=== PATIENT | female | born 1945 | race Caucasian/White ===

== ENCOUNTER 2018-02-07 11:46 | Inpatient (IN) | payer MEDICARE ==
[2018-02-07 15:14] LABS: ADD MAN DIFF? NO
[2018-02-07] MEDS ORDERED: ACETAMINOPHEN 325 MG TABLET. PO (15:15)
[2018-02-07] MEDS ORDERED: ONDANSETRON PF 4 MG/2 ML VIAL. IV (15:15)
[2018-02-07] MEDS ORDERED: MORPHINE SULFATE 2 MG/ML DISP.SYRIN. IV (15:15)
[2018-02-07 15:17] LABS: BASO # 0.1 x10^3/uL (0.0-0.2); BASO % 1 % (0-3); EOS # 0.1 x10^3/uL (0.0-0.7); EOS % 1 % (0-3); HEMOGLOBIN 12.9 g/dL (12.0-15.5); LYMPH # 1.9 x10^3/uL (1.0-4.8); LYMPH % 19 % (24-48); MEAN CORPUSCULAR HEMOGLOBIN 32 pg (25-35); MEAN CORPUSCULAR HGB CONC 34 g/dL (31-37); MEAN CORPUSCULAR VOLUME 94 fL (79-100); MONO # 0.6 x10^3/uL (0.0-1.1); MONO % 7 % (0-9); NEUT # 7.1 x10^3uL (1.8-7.7); NEUT % 73 % (31-73); PLATELET COUNT 245 x10^3/uL (140-400); RED BLOOD COUNT 4.06 x10^6/uL (3.50-5.40); RED CELL DISTRIBUTION WIDTH 14.6 % (11.5-14.5); WHITE BLOOD COUNT 9.7 x10^3/uL (4.0-11.0)
[2018-02-07] MEDS: fentaNYL PF VIAL 100 MCG/2 ML VIAL IV ×3 (15:17→22:36)
[2018-02-07 15:27] LABS: INR 3.1 (0.8-1.1); PARTIAL THROMBOPLASTIN TIME 41 SEC (24-38); PROTHROMBIN TIME PATIENT 31.2 SEC (11.7-14.0)
[2018-02-07 15:29] LABS: ANION GAP 9 (6-14); BLOOD UREA NITROGEN 24 mg/dL (7-20); BUN/CREATININE RATIO 24 (6-20); CALCIUM 10.2 mg/dL (8.5-10.1); CARBON DIOXIDE 27 mmol/L (21-32); CHLORIDE 104 mmol/L (98-107); GFR 54.5; GLUCOSE 215 mg/dL (70-99); POTASSIUM 5.2 mmol/L (3.5-5.1); SODIUM 140 mmol/L (136-145)
[2018-02-07] MEDS ORDERED: CONTRAST GIVEN MC (15:30)
[2018-02-07 15:34] LABS: ALBUMIN 3.4 g/dL (3.4-5.0); ALBUMIN/GLOBULIN RATIO 1.6 (1.0-1.7); ALK PHOS 116 U/L (46-116); ALT (SGPT) 40 U/L (14-59); AST (SGOT) 30 U/L (15-37); TOTAL BILIRUBIN 0.4 mg/dL (0.2-1.0); TOTAL PROTEIN 5.5 g/dL (6.4-8.2)
[2018-02-07 15:36] LABS: TROPONINI < 0.017 ng/mL (0.000-0.055)
[2018-02-07] MEDS: IOHEXOL 300 MG/ML 100ML VIAL. IV (15:53)
[2018-02-07 17:12] LABS: POC GLUCOSE 168 mg/dL (70-99)
[2018-02-07] MEDS: ALPRAZolam 0.25 MG TABLET PO (21:38)
[2018-02-07] MEDS: METOPROLOL TART IMMED RELEASE 25 MG TABLET. PO (21:38)
[2018-02-07] MEDS: diphenhydrAMINE HCL 25 MG CAPSULE PO (21:39)
[2018-02-07 21:56] LABS: POC GLUCOSE 152 mg/dL (70-99)
[2018-02-07 22:05] LABS: IMMEDIATE SPIN CROSSMATCH 1 3
[2018-02-08] MEDS: fentaNYL PF VIAL 100 MCG/2 ML VIAL IV ×4 (01:09→21:27)
[2018-02-08] MEDS ORDERED: LIDOCAINE 1% PF 2 ML VIAL. ID (08:15)
[2018-02-08] MEDS ORDERED: HYDROmorphone 2 MG/ML VIAL IV (08:15)
[2018-02-08] MEDS ORDERED: PROCHLORPERAZINE 10 MG/2 ML VIAL. IV (08:15)
[2018-02-08] MEDS ORDERED: fentaNYL PF VIAL 100 MCG/2 ML VIAL IV ×3 (08:15→14:45)
[2018-02-08] MEDS ORDERED: ONDANSETRON PF 4 MG/2 ML VIAL. IV ×2 (08:15→14:45)
[2018-02-08 09:07] LABS: ADD MAN DIFF? NO
[2018-02-08 09:21] LABS: BASO % 0 % (0-3); EOS # 0.2 x10^3/uL (0.0-0.7); EOS % 2 % (0-3); HEMATOCRIT 31.6 % (36.0-47.0); HEMOGLOBIN 10.5 g/dL (12.0-15.5); LYMPH # 2.1 x10^3/uL (1.0-4.8); LYMPH % 30 % (24-48); MEAN CORPUSCULAR HEMOGLOBIN 32 pg (25-35); MEAN CORPUSCULAR HGB CONC 33 g/dL (31-37); MEAN CORPUSCULAR VOLUME 94 fL (79-100); MONO # 0.6 x10^3/uL (0.0-1.1); MONO % 8 % (0-9); NEUT # 4.1 x10^3uL (1.8-7.7); NEUT % 59 % (31-73); PLATELET COUNT 181 x10^3/uL (140-400); RED BLOOD COUNT 3.34 x10^6/uL (3.50-5.40); RED CELL DISTRIBUTION WIDTH 14.9 % (11.5-14.5); WHITE BLOOD COUNT 6.9 x10^3/uL (4.0-11.0)
[2018-02-08 09:30] LABS: INR 1.5 (0.8-1.1); PROTHROMBIN TIME PATIENT 17.3 SEC (11.7-14.0)
[2018-02-08 09:35] LABS: ANION GAP 8 (6-14); BLOOD UREA NITROGEN 21 mg/dL (7-20); CALCIUM 10.3 mg/dL (8.5-10.1); CARBON DIOXIDE 30 mmol/L (21-32); CHLORIDE 103 mmol/L (98-107); GFR 54.5; GLUCOSE 145 mg/dL (70-99); SODIUM 141 mmol/L (136-145)
[2018-02-08 09:43] LABS: POTASSIUM 4.1 mmol/L (3.5-5.1)
[2018-02-08] MEDS: IV RINGERS,LACTATED 1000ML 1,000 ML IV (12:24)
[2018-02-08] MEDS ORDERED: PROPOFOL 20 ML IV (12:28)
[2018-02-08] MEDS ORDERED: fentaNYL PF VIAL 100 MCG/2 ML VIAL (12:28)
[2018-02-08 12:34] LABS: POC GLUCOSE 144 mg/dL (70-99)
[2018-02-08 12:34] LABS: POC GLUCOSE 133 mg/dL (70-99)
[2018-02-08] MEDS ORDERED: CLINDAMYCIN 600MG PREMIX 50 ML IV (13:15)
[2018-02-08] MEDS ORDERED: DEXAMETHASONE SOD PHOS 20 MG/5 ML VIAL. (13:59)
[2018-02-08] MEDS: CLINDAMYCIN 900MG PREMIX 50 ML IV ×2 (13:59→21:30)
[2018-02-08] MEDS ORDERED: SEVOFLURANE 31 TO 60 MINUTES. IH (13:59)
[2018-02-08] MEDS: BUPIVACAINE-EPI 0.25%-1:200000 50 ML VIAL. (14:04)
[2018-02-08] MEDS ORDERED: ONDANSETRON PF 4 MG/2 ML VIAL. (14:20)
[2018-02-08] MEDS ORDERED: HYDROcodone/APAP 7.5/325MG 1 TAB TABLET PO ×2 (14:45)
[2018-02-08] MEDS ORDERED: DEXTROSE 50% 25 GM / 50ML DISP.SYRIN. IV ×2 (14:45→18:30)
[2018-02-08] MEDS ORDERED: oxyCODONE IR 5 MG TABLET PO (14:45)
[2018-02-08] MEDS ORDERED: MORPHINE SULFATE 4 MG/ML DISP.SYRIN. IV (14:45)
[2018-02-08] MEDS ORDERED: MORPHINE SULFATE 2 MG/ML DISP.SYRIN. IV (14:45)
[2018-02-08] MEDS ORDERED: POLYETHYLENE GLYCOL 3350 17 GM PACKET. PO (14:45)
[2018-02-08 17:36] LABS: POC GLUCOSE 280 mg/dL (70-99)
[2018-02-08] MEDS: FUROSEMIDE 40 MG TABLET. PO (17:39)
[2018-02-08] MEDS: POTASSIUM CHLORIDE 20 MEQ TABLET.ER. PO (17:39)
[2018-02-08] MEDS: LEVOTHYROXINE 125 MCG TABLET PO (17:39)
[2018-02-08] MEDS: LISINOPRIL 20 MG TABLET PO (17:40)
[2018-02-08] MEDS: amLODIPine BESYLATE 5 MG TABLET PO (17:40)
[2018-02-08] MEDS: ESTRADIOL 1 MG TABLET. PO (17:41)
[2018-02-08] MEDS: METOPROLOL TART IMMED RELEASE 25 MG TABLET. PO ×2 (17:41→21:24)
[2018-02-08] MEDS: ALPRAZolam 0.25 MG TABLET PO (21:24)
[2018-02-08] MEDS: diphenhydrAMINE HCL 25 MG CAPSULE PO (21:25)
[2018-02-08 21:48] LABS: POC GLUCOSE 392 mg/dL (70-99)
[2018-02-08] MEDS: HEPARIN for IV BOLUS 10,000 UNIT/10 ML VIAL. IV (22:01)
[2018-02-08] MEDS: HEPARIN 25,000UTS/500ML PREMIX 500 ML IV (22:03)
[2018-02-08] MEDS: INSULIN ASPART 300 UNITS/3 ML INSULN.PEN SQ (22:50)
[2018-02-09] MEDS: fentaNYL PF VIAL 100 MCG/2 ML VIAL IV ×4 (00:43→21:33)
[2018-02-09] MEDS: CLINDAMYCIN 900MG PREMIX 50 ML IV ×2 (02:00→08:48)
[2018-02-09] MEDS ORDERED: MAGNESIUM HYDROXIDE 2,400 MG/30 ML ORAL.SUSP. PO (06:00)
[2018-02-09] MEDS: LEVOTHYROXINE 125 MCG TABLET PO (06:29)
[2018-02-09 08:22] LABS: POC GLUCOSE 222 mg/dL (70-99)
[2018-02-09] MEDS: ANTI-COAG MONITOR BY PHARMACY. MC (08:44)
[2018-02-09 08:45] LABS: ADD MAN DIFF? NO
[2018-02-09] MEDS: POTASSIUM CHLORIDE 20 MEQ TABLET.ER. PO (08:48)
[2018-02-09] MEDS: FUROSEMIDE 40 MG TABLET. PO (08:48)
[2018-02-09] MEDS: METOPROLOL TART IMMED RELEASE 25 MG TABLET. PO ×2 (08:49→20:48)
[2018-02-09] MEDS: amLODIPine BESYLATE 5 MG TABLET PO (08:49)
[2018-02-09] MEDS: SENNOSIDES/DOCUSATE 8.6/50MG TABLET. PO (08:49)
[2018-02-09] MEDS: ESTRADIOL 1 MG TABLET. PO (08:50)
[2018-02-09] MEDS: GLIMEPIRIDE 2 MG TABLET. PO (08:50)
[2018-02-09] MEDS: LISINOPRIL 20 MG TABLET PO (08:51)
[2018-02-09 08:53] LABS: BASO % 0 % (0-3); EOS % 0 % (0-3); HEMATOCRIT 28.1 % (36.0-47.0); HEMOGLOBIN 9.3 g/dL (12.0-15.5); LYMPH # 1.1 x10^3/uL (1.0-4.8); LYMPH % 13 % (24-48); MEAN CORPUSCULAR HEMOGLOBIN 32 pg (25-35); MEAN CORPUSCULAR HGB CONC 33 g/dL (31-37); MEAN CORPUSCULAR VOLUME 95 fL (79-100); MONO # 0.7 x10^3/uL (0.0-1.1); MONO % 8 % (0-9); NEUT # 6.7 x10^3uL (1.8-7.7); NEUT % 79 % (31-73); PLATELET COUNT 181 x10^3/uL (140-400); RED BLOOD COUNT 2.96 x10^6/uL (3.50-5.40); RED CELL DISTRIBUTION WIDTH 14.5 % (11.5-14.5); WHITE BLOOD COUNT 8.5 x10^3/uL (4.0-11.0)
[2018-02-09] MEDS: HYDROcodone/APAP 5/325MG 1 TAB TABLET PO ×4 (08:53→20:46)
[2018-02-09 09:03] LABS: INR 1.4 (0.8-1.1); PROTHROMBIN TIME PATIENT 16.2 SEC (11.7-14.0)
[2018-02-09 09:04] LABS: UNFRACTIONATED HEPARIN TESTING 0.66 IU/mL (0.30-0.70)
[2018-02-09] MEDS: INSULIN ASPART 300 UNITS/3 ML INSULN.PEN SQ ×3 (09:04→18:20)
[2018-02-09 11:56] LABS: POC GLUCOSE 215 mg/dL (70-99)
[2018-02-09] MEDS ORDERED: BISACODYL 10 MG SUPP.RECT. PR (16:00)
[2018-02-09 17:03] LABS: POC GLUCOSE 212 mg/dL (70-99)
[2018-02-09] MEDS: WARFARIN 7.5 MG TABLET. PO (17:07)
[2018-02-09] MEDS: ALPRAZolam 0.25 MG TABLET PO (20:46)
[2018-02-09] MEDS: HEPARIN 25,000UTS/500ML PREMIX 500 ML IV (20:46)
[2018-02-09] MEDS: diphenhydrAMINE HCL 25 MG CAPSULE PO (22:48)
[2018-02-10 05:08] LABS: ADD MAN DIFF? NO
[2018-02-10 05:28] LABS: BASO % 1 % (0-3); EOS # 0.2 x10^3/uL (0.0-0.7); EOS % 2 % (0-3); HEMATOCRIT 27.6 % (36.0-47.0); HEMOGLOBIN 9.2 g/dL (12.0-15.5); LYMPH # 3.5 x10^3/uL (1.0-4.8); LYMPH % 36 % (24-48); MEAN CORPUSCULAR HEMOGLOBIN 32 pg (25-35); MEAN CORPUSCULAR HGB CONC 33 g/dL (31-37); MEAN CORPUSCULAR VOLUME 96 fL (79-100); MONO # 0.7 x10^3/uL (0.0-1.1); MONO % 7 % (0-9); NEUT # 5.3 x10^3uL (1.8-7.7); NEUT % 54 % (31-73); PLATELET COUNT 211 x10^3/uL (140-400); RED BLOOD COUNT 2.88 x10^6/uL (3.50-5.40); RED CELL DISTRIBUTION WIDTH 15.2 % (11.5-14.5); WHITE BLOOD COUNT 9.7 x10^3/uL (4.0-11.0)
[2018-02-10 06:11] LABS: INR 1.4 (0.8-1.1); PROTHROMBIN TIME PATIENT 16.7 SEC (11.7-14.0)
[2018-02-10 06:12] LABS: UNFRACTIONATED HEPARIN TESTING 0.49 IU/mL (0.30-0.70)
[2018-02-10] MEDS: LEVOTHYROXINE 125 MCG TABLET PO ×2 (06:26→08:55)
[2018-02-10] MEDS: INSULIN ASPART 300 UNITS/3 ML INSULN.PEN SQ ×3 (08:00→17:40)
[2018-02-10 08:38] LABS: POC GLUCOSE 110 mg/dL (70-99)
[2018-02-10] MEDS: ESTRADIOL 1 MG TABLET. PO (08:51)
[2018-02-10] MEDS: SENNOSIDES/DOCUSATE 8.6/50MG TABLET. PO (08:53)
[2018-02-10] MEDS: LISINOPRIL 20 MG TABLET PO (08:53)
[2018-02-10] MEDS: POTASSIUM CHLORIDE 20 MEQ TABLET.ER. PO (08:53)
[2018-02-10] MEDS: ALPRAZolam 0.25 MG TABLET PO ×2 (08:54→20:15)
[2018-02-10] MEDS: amLODIPine BESYLATE 5 MG TABLET PO (08:54)
[2018-02-10] MEDS: GLIMEPIRIDE 2 MG TABLET. PO (08:54)
[2018-02-10] MEDS: FUROSEMIDE 40 MG TABLET. PO (08:54)
[2018-02-10] MEDS: METOPROLOL TART IMMED RELEASE 25 MG TABLET. PO ×2 (08:55→20:15)
[2018-02-10] MEDS: HYDROcodone/APAP 5/325MG 1 TAB TABLET PO ×4 (09:53→23:03)
[2018-02-10 11:11] LABS: POC GLUCOSE 225 mg/dL (70-99)
[2018-02-10] MEDS: ANTI-COAG MONITOR BY PHARMACY. MC (12:40)
[2018-02-10 17:00] LABS: POC GLUCOSE 207 mg/dL (70-99)
[2018-02-10] MEDS: WARFARIN 7.5 MG TABLET. PO (17:42)
[2018-02-10] MEDS: diphenhydrAMINE HCL 25 MG CAPSULE PO (20:15)
[2018-02-10] MEDS: HEPARIN 25,000UTS/500ML PREMIX 500 ML IV (23:03)
[2018-02-11 04:34] LABS: POC GLUCOSE 180 mg/dL (70-99)
[2018-02-11 05:25] LABS: UNFRACTIONATED HEPARIN TESTING 0.44 IU/mL (0.30-0.70)
[2018-02-11] MEDS: INSULIN ASPART 300 UNITS/3 ML INSULN.PEN SQ ×3 (08:00→17:00)
[2018-02-11] MEDS: POTASSIUM CHLORIDE 20 MEQ TABLET.ER. PO (08:07)
[2018-02-11] MEDS: FUROSEMIDE 40 MG TABLET. PO (08:07)
[2018-02-11] MEDS: LISINOPRIL 20 MG TABLET PO (08:15)
[2018-02-11] MEDS: METOPROLOL TART IMMED RELEASE 25 MG TABLET. PO ×2 (08:17→20:39)
[2018-02-11] MEDS: HYDROcodone/APAP 5/325MG 1 TAB TABLET PO ×3 (08:21→20:39)
[2018-02-11] MEDS: GLIMEPIRIDE 2 MG TABLET. PO (08:22)
[2018-02-11] MEDS: ESTRADIOL 1 MG TABLET. PO (08:22)
[2018-02-11] MEDS: SENNOSIDES/DOCUSATE 8.6/50MG TABLET. PO (08:23)
[2018-02-11] MEDS: ALPRAZolam 0.25 MG TABLET PO ×4 (08:23→20:39)
[2018-02-11] MEDS: amLODIPine BESYLATE 5 MG TABLET PO (08:33)
[2018-02-11] MEDS: ACETAMINOPHEN 325 MG TABLET. PO (11:41)
[2018-02-11 12:34] LABS: POC GLUCOSE 209 mg/dL (70-99)
[2018-02-11 12:34] LABS: POC GLUCOSE 111 mg/dL (70-99)
[2018-02-11 14:12] LABS: INR 2.4 (0.8-1.1); PROTHROMBIN TIME PATIENT 25.7 SEC (11.7-14.0)
[2018-02-11 17:31] LABS: POC GLUCOSE 120 mg/dL (70-99)
[2018-02-11] MEDS: diphenhydrAMINE HCL 25 MG CAPSULE PO (20:39)
[2018-02-12 05:30] LABS: INR 2.6 (0.8-1.1); PROTHROMBIN TIME PATIENT 27.1 SEC (11.7-14.0)
[2018-02-12] MEDS: LEVOTHYROXINE 125 MCG TABLET PO (05:31)
[2018-02-12 05:33] LABS: UNFRACTIONATED HEPARIN TESTING < 0.10 IU/mL (0.30-0.70)
[2018-02-12] MEDS: HYDROcodone/APAP 5/325MG 1 TAB TABLET PO ×4 (05:34→21:30)
[2018-02-12] MEDS: INSULIN ASPART 300 UNITS/3 ML INSULN.PEN SQ ×3 (08:00→17:00)
[2018-02-12 10:04] LABS: POC GLUCOSE 149 mg/dL (70-99)
[2018-02-12] MEDS: POTASSIUM CHLORIDE 20 MEQ TABLET.ER. PO (10:08)
[2018-02-12] MEDS: ESTRADIOL 1 MG TABLET. PO (10:08)
[2018-02-12] MEDS: SENNOSIDES/DOCUSATE 8.6/50MG TABLET. PO (10:08)
[2018-02-12] MEDS: FUROSEMIDE 40 MG TABLET. PO (10:09)
[2018-02-12] MEDS: GLIMEPIRIDE 2 MG TABLET. PO (10:09)
[2018-02-12] MEDS: LISINOPRIL 20 MG TABLET PO (10:09)
[2018-02-12] MEDS: amLODIPine BESYLATE 5 MG TABLET PO (10:10)
[2018-02-12] MEDS: METOPROLOL TART IMMED RELEASE 25 MG TABLET. PO ×2 (10:12→21:30)
[2018-02-12 12:28] LABS: POC GLUCOSE 207 mg/dL (70-99)
[2018-02-12 17:34] LABS: POC GLUCOSE 134 mg/dL (70-99)
[2018-02-12] MEDS: WARFARIN 3 MG TABLET. PO (17:53)
[2018-02-12 20:36] LABS: POC GLUCOSE 267 mg/dL (70-99)
[2018-02-12] MEDS: diphenhydrAMINE HCL 25 MG CAPSULE PO (21:29)
[2018-02-13] MEDS: LEVOTHYROXINE 125 MCG TABLET PO (05:56)
[2018-02-13] MEDS: HYDROcodone/APAP 5/325MG 1 TAB TABLET PO ×3 (05:57→16:55)
[2018-02-13 07:46] LABS: POC GLUCOSE 157 mg/dL (70-99)
[2018-02-13] MEDS: INSULIN ASPART 300 UNITS/3 ML INSULN.PEN SQ ×3 (08:00→17:00)
[2018-02-13] MEDS: SENNOSIDES/DOCUSATE 8.6/50MG TABLET. PO (09:18)
[2018-02-13] MEDS: ESTRADIOL 1 MG TABLET. PO (09:18)
[2018-02-13] MEDS: LISINOPRIL 20 MG TABLET PO (09:19)
[2018-02-13] MEDS: amLODIPine BESYLATE 5 MG TABLET PO (09:20)
[2018-02-13] MEDS: POTASSIUM CHLORIDE 20 MEQ TABLET.ER. PO (09:20)
[2018-02-13] MEDS: GLIMEPIRIDE 2 MG TABLET. PO (09:20)
[2018-02-13] MEDS: FUROSEMIDE 40 MG TABLET. PO (09:21)
[2018-02-13] MEDS: METOPROLOL TART IMMED RELEASE 25 MG TABLET. PO (09:25)
[2018-02-13 13:04] LABS: POC GLUCOSE 288 mg/dL (70-99)
[2018-02-13] MEDS: WARFARIN 3 MG TABLET. PO (16:00)
== END 2018-02-13 18:40 | disposition home or self-care (01) | DRG 605 ==
LOC: ER 11:46 → 2 NORTH 15:08
PROC: 0JCL0ZZ Extirpation of Matter from Right Upper Leg Subcutaneous Tissue and Fascia, Open Approach (ICD-10-PCS; principal; 2018-02-08 13:00)
PROC: 30233L1 Transfusion of Nonautologous Fresh Plasma into Peripheral Vein, Percutaneous Approach (ICD-10-PCS; 2018-02-08 13:45)
PROC: 30233K1 Transfusion of Nonautologous Frozen Plasma into Peripheral Vein, Percutaneous Approach (ICD-10-PCS; 2018-02-08 13:45)
DX: S70.11XA Contusion of right thigh, initial encounter (principal); L02.415 Cutaneous abscess of right lower limb; E11.9 Type 2 diabetes mellitus without complications; I35.0 Nonrheumatic aortic (valve) stenosis; E03.9 Hypothyroidism, unspecified; R79.1 Abnormal coagulation profile; I25.10 Atherosclerotic heart disease of native coronary artery without angina pectoris; T45.515A Adverse effect of anticoagulants, initial encounter; I10 Essential (primary) hypertension; V89.2XXA Person injured in unspecified motor-vehicle accident, traffic, initial encounter; Y93.89 Activity, other specified; Y92.488 Other paved roadways as the place of occurrence of the external cause; Y99.8 Other external cause status; W22.10XA Striking against or struck by unspecified automobile airbag, initial encounter; Z95.2 Presence of prosthetic heart valve; Z79.01 Long term (current) use of anticoagulants
CPT/HCPCS: 36415; 71260; 73564; 73701; 74177; 76881; 80048; 80053; 82962; 84484; 85025; 85520; 85610; 85730; 86850; 86900; 86901; 86920; 86927; 87071; 87075; 87205; 93005; 97162-GP; 97165-GO; 97530-GO; 97530-GP; 97535-GO; 99291; 99291-25; J1100; J1644; J1815; J2405; J2704; J3010; J3490; J7120; P9017; Q0163; Q9967

== ENCOUNTER 2018-07-21 22:38 | Emergency (ER) | payer MEDICARE, OTHER ==
[~2018-07-21] VITALS: Ht 149.9 cm; Wt 81.2 kg
[~2018-07-21 22:38] MED LIST: ALPR0.254 PO; AMLO5TAB7 PO; ESTR1TAB15 PO; FURO40TA4 PO; HYDR-971 PO; LEVO125T5 PO; LISI-334 PO; METF500T16 PO; METO25TA4 PO; POTA20TA82 PO; PRAV40TA2 PO; WARF3TAB50 PO
--- NOTE | 2018-07-21 23:59 | PHYS DOC ---
Past Medical History Past Medical History: Anxiety, Diabetes-Type II, High Cholesterol, Hypertension , Hypothyroid Past Surgical History: Appendectomy, Hysterectomy Additional Past Surgical Histo: AORTIC VALVE REPLACEMENT Alcohol Use: None Drug Use: None Adult General Chief Complaint Chief Complaint: HYPERTENSION HPI HPI 72-year-old female presents to ER for complaints of concerns of elevated blood pressure. Patient reports over the past 7 months she has had increased stress and anxiety due to her uncle dying and her helping her aunt as she is having daily chemo txs. Pt also reports recently her husb. had some health issues to. She reports she took her Rx'd Xanax 0.25mg tonight [employer] which has helped her anxiety. She denies SI. Review of Systems Review of Systems Constitutional: Denies fever or chills [] Eyes: Denies change in visual acuity, redness, or eye pain [] HENT: Denies nasal congestion or sore throat [] Respiratory: Denies cough or shortness of breath [] Cardiovascular: No additional information not addressed in HPI [] GI: Denies abdominal pain, nausea, vomiting, bloody stools or diarrhea [] : Denies dysuria or hematuria [] Musculoskeletal: Denies back pain or joint pain [] Integument: Denies rash or skin lesions [] Neurologic: Denies headache, focal weakness or sensory changes [] Endocrine: Denies polyuria or polydipsia [] All other systems were reviewed and found to be within normal limits, except as documented in this note. Current Medications Current Medications Current Medications Medications (Trade) Dose Ordered Sig/Jo Start Time Stop Time Status Last Admin Dose Admin Amlodipine Besylate (Norvasc) 2.5 mg 1X ONCE 07/22/18 01:15 07/22/18 01:16 DC Allergies Allergies Allergies Coded Allergies Type Severity Reaction Last Updated Verified Penicillins Allergy Intermediate 02/07/18 Yes codeine Allergy Intermediate RESPIRATORY ISSUES. TOLERATES HYDROCODONE Yes Physical Exam Physical Exam Constitutional: Well developed, well nourished, no acute distress, non-toxic appearance. [] HENT: Normocephalic, atraumatic, bilateral external ears normal, oropharynx moist, no oral exudates, nose normal. [] Eyes: PERRLA, EOMI, conjunctiva normal, no discharge. [] Neck: Normal range of motion, no tenderness, supple, no stridor. [] Cardiovascular:Heart rate regular rhythm, no murmur [] Lungs & Thorax: Bilateral breath sounds clear to auscultation [] Abdomen: Bowel sounds normal, soft, no tenderness, no masses, no pulsatile masses. [] Skin: Warm, dry, no erythema, no rash. [] Back: No tenderness, no CVA tenderness. [] Extremities: No tenderness, no cyanosis, no clubbing, ROM intact, no edema. [] Neurologic: Alert and oriented X 3, normal motor function, normal sensory function, no focal deficits noted. [] Psychologic: Affect normal, judgement normal, mood normal. [] Current Patient Data Vital Signs Vital Signs Date Time Temp Pulse Resp B/P (MAP) Pulse Ox O2 Delivery O2 Flow Rate FiO2 07/21/18 22:45 97.7 85 16 189/69 (109) 94 Room Air 97.7 Lab Values Laboratory Tests Test 07/21/18 23:55 07/22/18 00:10 Urine Collection Type Unknown Urine Color Yellow Urine Clarity Clear Urine pH 6.5 Urine Specific [place] <=1.005 Urine Protein Negative mg/dL (NEG-TRACE) Urine Glucose (UA) Negative mg/dL (NEG) Urine Ketones (Stick) Negative mg/dL (NEG) Urine Blood Negative (NEG) Urine Nitrite Negative (NEG) Urine Bilirubin Negative (NEG) Urine Urobilinogen Dipstick 0.2 mg/dL (0.2 mg/dL) Urine Leukocyte Esterase Negative (NEG) Urine RBC 0 /HPF (0-2) Urine WBC 0 /HPF (0-4) Urine Squamous Epithelial Cells Few /LPF Urine Bacteria 0 /HPF (0-FEW) White Blood Count 5.0 x10^3/uL (4.0-11.0) Red Blood Count 4.41 x10^6/uL (3.50-5.40) Hemoglobin 13.6 g/dL (12.0-15.5) Hematocrit 39.6 % (36.0-47.0) Mean Corpuscular Volume 90 fL (79-100) Mean Corpuscular Hemoglobin 31 pg (25-35) Mean Corpuscular Hemoglobin Concent 34 g/dL (31-37) Red Cell Distribution Width 17.8 % (11.5-14.5) H Platelet Count 264 x10^3/uL (140-400) Neutrophils (%) (Auto) 51 % (31-73) Lymphocytes (%) (Auto) 33 % (24-48) Monocytes (%) (Auto) 11 % (0-9) H Eosinophils (%) (Auto) 4 % (0-3) H Basophils (%) (Auto) 1 % (0-3) Neutrophils # (Auto) 2.6 x10^3uL (1.8-7.7) Lymphocytes # (Auto) 1.7 x10^3/uL (1.0-4.8) Monocytes # (Auto) 0.5 x10^3/uL (0.0-1.1) Eosinophils # (Auto) 0.2 x10^3/uL (0.0-0.7) Basophils # (Auto) 0.1 x10^3/uL (0.0-0.2) Prothrombin Time 27.1 SEC (11.7-14.0) H Prothrombin Time INR 2.6 (0.8-1.1) H PTT 40 SEC (24-38) H Sodium Level 140 mmol/L (136-145) Potassium Level 3.5 mmol/L (3.5-5.1) Chloride Level 103 mmol/L (98-107) Carbon Dioxide Level 28 mmol/L (21-32) Anion Gap 9 (6-14) Blood Urea Nitrogen 16 mg/dL (7-20) Creatinine 0.9 mg/dL (0.6-1.0) Estimated GFR (Cockcroft-Gault) 61.5 BUN/Creatinine Ratio 18 (6-20) Glucose Level 176 mg/dL (70-99) H Calcium Level 11.1 mg/dL (8.5-10.1) H Magnesium Level 2.0 mg/dL (1.8-2.4) Total Bilirubin 0.3 mg/dL (0.2-1.0) Aspartate Amino Transferase (AST) 25 U/L (15-37) Alanine Aminotransferase (ALT) 24 U/L (14-59) Alkaline Phosphatase 146 U/L (46-116) H Troponin I Quantitative < 0.017 ng/mL (0.000-0.055) Total Protein 7.0 g/dL (6.4-8.2) Albumin 3.4 g/dL (3.4-5.0) Albumin/Globulin Ratio 0.9 (1.0-1.7) L Laboratory Tests 07/22/18 00:10 Laboratory Tests 07/22/18 00:10 EKG EKG EKG obtained was compared with one in pt's records from 02/07/18 similar- more freq. PVCs on today's EKG Radiology/Procedures Radiology/Procedures [] Course & Med Decision Making Course & Med Decision Making Pertinent Labs and Imaging studies reviewed. (See chart for details) 0128: Pt during initial exam had BP of 188/78 however during ER stay BP was 207/ 77 at last check when discussing test results with pt and her husb. This was discussed with Dr. Sauceda and initially plan was to admin. 2.5 mg amlodipine however pt on recheck pt is taking max dose of 10mg/day. So order changed to Clonidine 0.1mg and this was discussed with pt. Pt is calling PCP Dr. Gore in morning to discuss ER visit and will f/u with him tomorrow for recheck and further care/monitoring of BP. Discussed Calcium at 11.1 and pt will also discuss this with PCP. Pt during this discussion has no complaints. Dragon Disclaimer Dragon Disclaimer This electronic medical record was generated, in whole or in part, using a voice recognition dictation system. Departure Departure Impression: Primary Impression: Elevated blood pressure reading with diagnosis of hypertension Disposition: 01 HOME, SELF-CARE Condition: STABLE Referrals: SHANDA GORE MD (PCP) Patient Instructions: Hypertension, Managing Your High Blood Pressure Additional Instructions: As discussed call Dr. Gore's office tomorrow and discuss your ER visit and need for follow-up for recheck of blood pressure. Your INR was 2.6 Calcium was 11.2- you should discuss this and have level rechecked. FAUSTO ZARATE APRN Jul 21, 2018 23:59
[2018-07-22 00:26] LABS: BASO # 0.1 x10^3/uL (0.0-0.2); BASO % 1 % (0-3); EOS # 0.2 x10^3/uL (0.0-0.7); EOS % 4 % (0-3); HEMATOCRIT 39.6 % (36.0-47.0); HEMOGLOBIN 13.6 g/dL (12.0-15.5); LYMPH # 1.7 x10^3/uL (1.0-4.8); LYMPH % 33 % (24-48); MEAN CORPUSCULAR HEMOGLOBIN 31 pg (25-35); MEAN CORPUSCULAR HGB CONC 34 g/dL (31-37); MEAN CORPUSCULAR VOLUME 90 fL (79-100); MONO # 0.5 x10^3/uL (0.0-1.1); MONO % 11 % (0-9); NEUT # 2.6 x10^3uL (1.8-7.7); NEUT % 51 % (31-73); PLATELET COUNT 264 x10^3/uL (140-400); RED BLOOD COUNT 4.41 x10^6/uL (3.50-5.40); RED CELL DISTRIBUTION WIDTH 17.8 % (11.5-14.5)
[2018-07-22 00:27] LABS: BILIRUBIN,URINE NEGATIVE (NEG); CLARITY,URINE CLEAR; COLOR,URINE YELLOW; NITRITE,URINE NEGATIVE (NEG); PH,URINE 6.5; PROTEIN,URINE NEGATIVE (NEG-TRACE); UROBILINOGEN,URINE 0.2 mg/dL (0.2 mg/dL)
[2018-07-22 00:42] LABS: PROTHROMBIN TIME PATIENT 27.1 SEC (11.7-14.0)
[2018-07-22 00:43] LABS: CALCIUM 11.1 mg/dL (8.5-10.1); CREATININE 0.9 mg/dL (0.6-1.0); GFR 61.5; POTASSIUM 3.5 mmol/L (3.5-5.1)
[2018-07-22 00:47] LABS: ALBUMIN 3.4 g/dL (3.4-5.0); ALBUMIN/GLOBULIN RATIO 0.9 (1.0-1.7); TOTAL BILIRUBIN 0.3 mg/dL (0.2-1.0)
[2018-07-22 00:50] LABS: BACTERIA,URINE 0 /HPF (0-FEW); RBC,URINE 0 /HPF (0-2); SQUAMOUS EPITHELIAL CELL,UR FEW /LPF; WBC,URINE 0 /HPF (0-4)
[2018-07-22] MEDS ORDERED: amLODIPine BESYLATE 5 MG TABLET PO ONE (01:15)
[2018-07-22] MEDS ORDERED: cloNIDine HCL 0.1 MG TABLET PO ONE (01:45)
[2018-07-22 02:00] VITALS: BP 162/72
--- NOTE | 2018-07-22 06:16 | EKG ---
[facility] [address] [place] [address] Test Date: 2018-07-21 Test Time: 23:31:04 Pat Name: MADONNA HANNA Department: Room: Gender: F [employer]: : 1945 Requested By: FAUSTO ZARATE Order Number: [id number] Reading MD: Edison Morse Measurements Intervals [place] Rate: 68 P: CO: QRS: -134 QRSD: 140 T: 160 QT: 458 QTc: 492 Interpretive Statements SINUS RHYTHM VENTRICULAR PREMATURE COMPLEX(ES) ABNORMAL RIGHT SUPERIOR AXIS DEVIATION NON SPECIFIC INTRAVENTRICULAR BLOCK CONSIDER RIGHT VENTRICULAR HYPERTROPHY QRS(T) CONTOUR ABNORMALITY CONSISTENT WITH HIGH LATERAL INFARCT AGE UNDETERMINED CONSISTENT WITH INFERIOR INFARCT AGE UNDETERMINED ABNORMAL ECG RI6.01 Electronically Signed On 07-22-2018 15:29:56 CDT by Edison Morse
== END 2018-07-22 02:15 | disposition home or self-care (01) ==
LOC: ER 22:38
DX: I10 Essential (primary) hypertension (principal); F41.9 Anxiety disorder, unspecified; E78.00 Pure hypercholesterolemia, unspecified; E11.9 Type 2 diabetes mellitus without complications; E03.9 Hypothyroidism, unspecified; Z90.710 Acquired absence of both cervix and uterus; Z90.89 Acquired absence of other organs; Z88.0 Allergy status to penicillin; Z88.5 Allergy status to narcotic agent
CPT/HCPCS: 36415; 80053; 81001; 83735; 84484; 85025; 85610; 85730; 93005; 99285-25